=== PATIENT | female | born 2000 | race Asian ===

== ENCOUNTER 2024-11-21 20:33 | Emergency (ER) | payer OTHER ==
[2024-11-21 20:37] VITALS: BP 115/63; PULSE 85; RESP 18; TEMP 98.4; BMI 25.6
[2024-11-21] MEDS ORDERED: ONDANSETRON 4 MG/2 ML VIAL ONE (21:05)
[2024-11-21] MEDS: SODIUM CHLORIDE 0.9% 500 ML INFUS.BAG IV ONE (21:29)
[2024-11-21] MEDS: ONDANSETRON 4 MG/2 ML VIAL IVPUSH ONE (21:29)
[2024-11-21 21:30] LABS: ABSOLUTE IMMATURE GRANULOCYTES 0.02 x10^3/uL (0.0-0.031); BASOPHILS # 0.03 x10^3/uL (0.01-0.08); EOSINOPHIL % 0.6 % (0.7-5.8); EOSINOPHILS # 0.07 x10^3/uL (0.04-0.36); HEMATOCRIT 38.2 % (34.1-44.9); HEMOGLOBIN 12.4 g/dL (11.2-15.7); MCHC 32.5 g/dl (32.2-35.5); MEAN CELL VOLUME 86.6 fl (79.4-94.8); MEAN PLT VOLUME 10.2 fl (9.4-12.3); MONOCYTE # 0.65 x10^3/uL (0.24-0.86); MONOCYTE % 5.6 % (4.7-12.5); PLATELET COUNT 331 x10^3/uL (182-369); RDW 12.8 % (12.1-16.5)
[2024-11-21 22:23] LABS: POTASSIUM 4.1 mmol/L (3.5-5.1)
[2024-11-21 22:25] LABS: CALCIUM 9.8 mg/dL (8.5-10.1)
[2024-11-21 22:26] LABS: BLOOD UREA NITROGEN 17.6 mg/dL (7-18)
[2024-11-21 22:29] LABS: CREATININE 0.7 mg/dL (0.55-1.3)
[2024-11-21 22:31] LABS: BILIRUBIN,TOTAL 0.3 mg/dL (0.2-1); TOT PROT 7.8 g/dl (6.4-8.2)
[2024-11-21] MEDS ORDERED: ONDANSETRON *ODT* 4 MG TABLET SL ONE (22:33)
[2024-11-21] MEDS ORDERED: ONDANSETRON *ODT* 4 MG TABLET ONE (22:34)
== END 2024-11-21 22:39 | disposition home or self-care (01) ==
LOC: JER 20:33
PROC: 3E033GC Introduction of Other Therapeutic Substance into Peripheral Vein, Percutaneous Approach (ICD-10-PCS; principal; 2024-11-21)
DX: R11.2 Nausea with vomiting, unspecified (principal)
CPT/HCPCS: 0241U-QW; 36415; 80053; 84703; 85025; 99284-25